=== PATIENT | male | born 2000 | race African-American/Black ===

== ENCOUNTER 2021-04-08 22:53 | Emergency (ER) | payer SELFPAY ==
[2021-04-08 23:26] VITALS: BMI 22.4
[2021-04-08] MEDS ORDERED: IBUPROFEN 400 MG TABLET (FP) PO ONE ×2 (23:49→23:58)
[2021-04-09 00:18] LABS: BASO % 0.6 % (0-2.0); EOS % 1.7 % (0-4.5); HEMATOCRIT 41.3 % (35.4-49); HEMOGLOBIN 13.9 GM/dL (11.7-16.9); LYMPH % 18.7 % (8-40); MCH 28.4 pg (25.7-33.7); MCHC 33.8 g/dl (32.0-35.9); MEAN CELL VOLUME 84.2 fl (80-96); MEAN PLT VOLUME 8.9 fl (7.5-11.1); MONO % 10.1 % (3.8-10.2); NEUT % 68.9 % (42.8-82.8); PLATELET COUNT 202 10^3/uL (134-434); RDW 14.8 % (11.9-15.9); WHITE BLOOD COUNT 7.2 K/mm3 (4.0-10.0)
[2021-04-09 00:32] LABS: CHLORIDE 105 mmol/L (98-107); SODIUM 140 mmol/L (136-145)
[2021-04-09 00:35] LABS: ANION GAP 3 MMOL/L (8-16); BLOOD UREA NITROGEN 18.5 mg/dL (7-18); CALCIUM 9.4 mg/dL (8.5-10.1); CO2 32 mmol/L (21-32); GLUCOSE,RANDOM 101 mg/dL (74-106)
[2021-04-09 00:38] LABS: CREATININE 1.2 mg/dL (0.55-1.3); SGOT/AST 15 U/L (15-37); SGPT/ALT 23 U/L (13-61)
[2021-04-09 00:40] LABS: TOT PROT 7.7 g/dl (6.4-8.2)
[2021-04-09 00:41] LABS: ALK PHOS 72 U/L (45-117)
[2021-04-09 00:59] VITALS: BP 113/59; PULSE 69; TEMP 98.1
[2021-04-09 01:48] LABS: URINE APPEARANCE CLEAR; URINE BILIRUBIN NEGATIVE (NEGATIVE); URINE COLOR YELLOW; URINE GLUCOSE (UA) NEGATIVE (NEGATIVE); URINE KETONE TRACE (NEGATIVE); URINE LEUK ESTERASE NEGATIVE (NEGATIVE); URINE NITRITE NEGATIVE (NEGATIVE); URINE PROTEIN TRACE (NEGATIVE)
[2021-04-09 02:12] LABS: COCAINE, UR NEGATIVE (NEGATIVE); OPIATES, URI NEGATIVE (NEGATIVE); URINE AMPHETAMINES NEGATIVE (NEGATIVE); URINE BARBITURATES NEGATIVE (NEGATIVE)
[2021-04-09 02:13] LABS: PHENCYCLIDINE,URINE NEGATIVE (NEGATIVE)
[2021-04-09 02:24] LABS: METHADONE, UR NEGATIVE (NEGATIVE); URINE BENZODIAZEPINES NEGATIVE (NEGATIVE)
== END 2021-04-09 02:34 | disposition home or self-care (01) ==
LOC: JER 22:53
DX: R56.9 Unspecified convulsions (principal); M25.571 Pain in right ankle and joints of right foot
CPT/HCPCS: 36415; 70450-TC; 73610-TC-RT-FY; 73630-TC-RT-FY; 80053; 80307; 81003; 85025; 93005; 93010; 99285-25